=== PATIENT | female | born 1970 ===

== ENCOUNTER 2024-02-13 06:34 | Day surgery (SDC) | payer OTHER ==
[2024-02-13] MEDS ORDERED: POVIDONE-IODINE 118 ML BOTT TOP ONE (10:11)
[2024-02-13] MEDS ORDERED: ENALAPRILAT DIHYDRATE 1.25 MG/ML VIAL IV ONE (11:47)
[2024-02-13] MEDS ORDERED: KETOROLAC TROMETHAMINE 30 MG VIAL IV STA (12:30)
[2024-02-13] MEDS ORDERED: KETOROLAC TROMETHAMINE 30 MG VIAL ONE (15:28)
[2024-02-13] MEDS ORDERED: hydrALAZINE HCL 20 MG VIAL ONE (18:33)
== END 2024-02-13 19:30 | disposition home or self-care (01) ==
LOC: CIR.AMB 06:34
PROVIDERS: ATTEND Obstetrics & Gynecology
DX: N84.0 Polyp of corpus uteri (principal); D25.0 Submucous leiomyoma of uterus; N95.0 Postmenopausal bleeding